=== PATIENT | male | born 1945 | race Caucasian/White ===

== ENCOUNTER 2016-06-07 13:36 | Outpatient (CLI) | payer MEDICARE ==
--- OUTSIDE RECORDS SUMMARY | 2016-06-07 13:38 | XMS REPORT ---
Author Author TAMARA BROOKS eClinicalWorks Address Unknown Phone Unavailable Care Team Providers Care Firearms Expert Name Role Phone TAMARA BROOKS CP Unavailable Allergies, Adverse Reactions, Alerts Substance Reaction Event Type N.K.D.A. Info Not Available Non Drug Allergy Problems Problem Type Condition Code Onset Dates Condition Status Problem Unspecified essential hypertension 401.9 Active Problem Other and unspecified hyperlipidemia 272.4 Active Problem Special screening for malignant neoplasms, colon V76.51 Active Assessment Encounter for immunization Z23 Active Assessment Screening for colon cancer Z12.11 Active Problem Paralysis agitans 332.0 Active Assessment High risk medication use Z79.899 Active Medications Medication Code System Code Instructions Start Date End Date Status Dosage Aspir-Low [facility] [address]-32 81 MG Orally Once a day 1 tablet Carbidopa-Levodopa [facility] [address]-50 25-100 mg September 11, 2011 take 2 tablets by oral route 4 times per day Fenofibric Acid [facility] [address]-19 45 MG Orally Once a day 3 capsules Toprol XL [facility] [address]-70 50 MG Orally 2 times a day 1 tablet Procedures Procedure Coding System Code Date [facility] VISIT ESTABLISHED PATIENT CPT-4 G0467 Mar 09, 2015 Office Visit, Est Pt., Level 3 CPT-4 77144 Mar 09, 2015 ADMN FLU VAC NO FEE SCHED SAME DAY CPT-4 G0008 Mar 09, 2015 SINGLE IMMUNIZATION ADMIN CPT-4 88267 Mar 09, 2015 FLUARIX QUAD (3 & UP)-GSK-2014 CPT-4 18368 Mar 09, 2015 Vital Signs Date/Time: Mar 09, 2015 Temperature 97.6 F Weight 158.0 lbs Height 72 in BMI 21.43 Index Blood Pressure Diastolic 76 mmHg Blood Pressure Systolic 120 mmHg Cardiac Monitoring Heart Rate 84 bpm Results No Known Results Immunizations Vaccine Administration Date FLUARIX QUAD (3 & UP)-GSK-2014Mar 09, 2015 Summary Purpose eClinicalWorks Submission
--- NOTE | 2016-06-09 15:46 | ECHOCARDIOGRAPHY REPORT ---
PROCEDURE PHYSICIAN: REBECA BACH DATE OF PROCEDURE: 06/07/2016 TWO DIMENSIONAL ECHOCARDIOGRAM REPORT PRIMARY PHYSICIAN: OTHER PHYSICIAN: REFERRING PHYSICIAN: Dr. Deborah Li, [facility] ORDERING PHYSICIAN: INDICATION FOR THE PROCEDURE: MEASUREMENTS DERIVED VALUES LV DIAMETER (LAX) NORMALS NORMALS Diastolic 4.3 (3.6-5.2) Eject. Fract. 60% (60%+/-6%) Systolic (2.3-3.9) Diastolic Vol. % Shortening (0.22-0.42) Systolic Vol. Aortic Root IVS THICKNESS Diastolic 1.1 (0.6-1.1) LVPW THICKNESS Diastolic 1.1 (0.6-1.1) LA DIAMETER Systolic 3.4 (2.1-3.7) FINDINGS: 1. Technical quality is good. 2. The left ventricle is normal in size with normal contractility. Systolic function appeared to be normal. Estimated ejection fraction 60%. 3. The left atrium is normal in size. No clot or thrombus were seen within the left atrium. 4. The right atrium and right ventricle are normal in size. No clot or thrombus were seen within the right side. 5. Mitral valve is normal in morphology with normal excursion and coaptation. No mitral valve prolapse. No mitral valve stenosis. 6. Aortic valve is trileaflet with normal opening and closing pattern. No significant aortic stenosis or regurgitation was seen. 7. Tricuspid valve is normal in morphology with mild tricuspid regurgitation noted by color Doppler flow. Doppler across tricuspid valve estimated pulmonary artery pressure of 17+ right atrial pressure. 8. Pulmonic valve is functioning normally. 9. No pericardial effusion. IN CONCLUSION: 1. Normal left ventricular size and systolic function. Estimated ejection fraction 60%. 2. Mild mitral and tricuspid regurgitation. 3. Estimated pulmonary artery pressure of 25 mmHg. Job ID: [id number] Dictated Date: 06/08/2016 12:41:43 Telegraph Operator Date: 06/09/2016 15:44:19 / eber
== END 2016-08-05 13:33 | disposition home or self-care (01) ==
LOC: CARD 13:36
PROVIDERS: ATTEND Physician Assistant
DX: I35.1 Nonrheumatic aortic (valve) insufficiency (principal); I10 Essential (primary) hypertension; E78.2 Mixed hyperlipidemia; I34.0 Nonrheumatic mitral (valve) insufficiency
CPT/HCPCS: 93306

== ENCOUNTER → 2018-12-11 | Outpatient (CLI) | payer MEDICARE | LOC: CARD 10:45 | PROVIDERS: ATTEND Physician Assistant | DX: I08.3 Combined rheumatic disorders of mitral, aortic and tricuspid valves (principal); I10 Essential (primary) hypertension; E78.5 Hyperlipidemia, unspecified; G20 Parkinson's disease | CPT/HCPCS: 93306 ==

== ENCOUNTER → 2021-07-23 | Outpatient (CLI) | payer MEDICARE ==
[2021-07-23 16:23] LABS: HEMATOCRIT 43 % (40-54); HEMOGLOBIN 14.6 g/dL (13.3-17.7); MEAN CORPUSCULAR HEMOGLOBIN 34 pg (25-34); MEAN CORPUSCULAR HGB CONC 34 g/dL (32-36); MEAN CORPUSCULAR VOLUME 100 fL (80-99); MEAN PLATELET VOLUME 10.5 fL (9.0-12.2); PLATELET COUNT 226 10^3/uL (130-400); WHITE BLOOD COUNT 10.5 10^3/uL (4.3-11.0)
[2021-07-23 16:31] LABS: ALBUMIN 4.4 GM/DL (3.2-4.5); POTASSIUM 3.9 MMOL/L (3.6-5.0)
[2021-07-23 16:32] LABS: CALCIUM 9.5 MG/DL (8.5-10.1)
[2021-07-23 16:34] LABS: TOTAL PROTEIN 8.1 GM/DL (6.4-8.2)
[2021-07-23 16:35] LABS: BILIRUBIN,TOTAL 0.4 MG/DL (0.1-1.0)
[2021-07-23 16:37] LABS: CREATININE SERUM 1.08 MG/DL (0.60-1.30)
== END ==
LOC: LAB 16:01
PROVIDERS: ATTEND Internal Medicine Cardiovascular Disease
DX: I08.0 Rheumatic disorders of both mitral and aortic valves (principal); I11.9 Hypertensive heart disease without heart failure; E78.2 Mixed hyperlipidemia
CPT/HCPCS: 36415; 80053; 84443; 85027

== ENCOUNTER → 2021-11-14 | Outpatient (CLI) | payer MEDICARE ==
--- NOTE | 2021-11-14 15:47 | Diagnostic Imaging Report ---
PROCEDURE: US Renal Bilateral. TECHNIQUE: Multiple real-time grayscale images were obtained over the kidneys in various projections bilaterally. INDICATION: Urinary tract infection and pyuria. Right kidney measures 10.9 x 5.9 x 5.7 cm and the left kidney measures 10.3 x 5.0 x 4.5 cm. There is a cystic lesion in the mid right kidney 3.6 x 2.3 x 3.6 cm in size. No calculi or hydronephrosis is seen. There appears to be a mass occupying the majority of the urinary bladder. IMPRESSION: 1. 3.6 m simple right renal cyst. No calculi or hydronephrosis is detected. 2. A large mass occupying the majority of the urinary bladder. While much of this could represent blood clot, bladder neoplasm would be an additional consideration. Cystoscopy would be recommended. Dictated by: Dictated on workstation # [id number]
== END ==
LOC: RAD 12:30
PROVIDERS: ATTEND Specialist
DX: N39.0 Urinary tract infection, site not specified (principal); N28.1 Cyst of kidney, acquired; N32.9 Bladder disorder, unspecified
CPT/HCPCS: 76770